=== PATIENT | female | born 1955 | race Caucasian/White ===

== ENCOUNTER 2023-04-01 12:19 | Emergency (ER) | payer OTHER, MEDICARE | END 2023-04-01 14:02 | disposition home or self-care (01) | LOC: NAV ERS 12:19 | DX: S92.335A Nondisplaced fracture of third metatarsal bone, left foot, initial encounter for closed fracture (principal); E78.00 Pure hypercholesterolemia, unspecified; K21.9 Gastro-esophageal reflux disease without esophagitis; I10 Essential (primary) hypertension; W01.0XXA Fall on same level from slipping, tripping and stumbling without subsequent striking against object, initial encounter; Y92.34 Swimming pool (public) as the place of occurrence of the external cause; Z79.82 Long term (current) use of aspirin ==